=== PATIENT | female | born 1980 | race Caucasian/White ===

== ENCOUNTER 2020-12-30 18:01 | Emergency (ER) | payer MEDICAID, SELFPAY ==
--- NOTE | ~2020-12-30 | MR_ITS ---
EXAMINATION: MR LUMBAR SPINE WITHOUT CONTRAST CLINICAL INFORMATION: Low back pain. Bladder incontinence. COMPARISON: Lumbar spine MRI from 09/01/2019. TECHNIQUE: MRI of the lumbar spine was obtained using routine sequences without contrast. FINDINGS: Mild degenerative retrolisthesis of L5 on S1. Otherwise, normal anatomic alignment. Normal, homogeneous marrow signal throughout. No suspicious marrow edema. The vertebral body heights are maintained. Mild to moderate degenerative disc disease at L4-L5 and L5-S1 with partial disc desiccation and loss of height. The conus medullaris terminates at the level of L1. The distal spinal cord is normal in appearance. No significant abnormalities of the paraspinal musculature. Moderate distention of the urinary bladder. There is retroversion of the uterus. Otherwise, limited evaluation of the intra-abdominal structures without significant abnormalities. The abdominal aorta is of normal contour and caliber. AXIAL SPINAL LEVELS: L1-L2: Normal annular contour. There is no facet joint arthropathy. There is no neural foraminal stenosis. There is no spinal canal stenosis. L2-L3: Normal annular contour. There is no facet joint arthropathy. There is no neural foraminal stenosis. There is no spinal canal stenosis. L3-L4: Normal annular contour. There is no facet joint arthropathy. There is no neural foraminal stenosis. There is no spinal canal stenosis. L4-L5: Mild diffuse disc bulge. There is mild bilateral facet joint arthropathy. There is mild bilateral neural foraminal stenosis. There is stenosis of the subarticular zones with no overt spinal canal stenosis centrally. L5-S1: Moderate diffuse disc bulge with superimposed right subarticular disc extrusion with inferior migration. There is mild to moderate bilateral facet joint arthropathy. There is mild right and no left neural foraminal stenosis. There is stenosis of the right greater than left subarticular zones with mild spinal canal stenosis centrally. MR/MR lumbar spine wo con IMPRESSION: A right subarticular disc extrusion with inferior migration at L5-S1 has progressed compared to exam from 2019. There is now stenosis of the right subarticular zone and mild spinal canal stenosis centrally at L5-S1. Associated compression of the traversing right-sided S1 nerve roots. Disc bulges also cause stenoses of the remaining subarticular zones at L4-L5 and L5-S1 with a degree of mass effect on the traversing L5 and S1 nerve roots. Moderate distention of the urinary bladder.
[2020-12-30 18:03] VITALS: BP 115/77; PULSE 83; RESP 18; TEMP 36.8; O2SAT 99; BMI 27.4
--- NOTE | 2020-12-30 18:54 | ED.BACK ---
HPI - Back Pain/Injury General Chief Complaint: Back Pain/Injury Stated Complaint: LOW BACK PAIN Time Seen by Provider: 12/30/20 18:51 Source: patient Mode of arrival: ambulatory Limitations: no limitations History of Present Illness HPI Narrative: 40-year-old female with a past medical history of herniated discs. She tells me she is followed by [facility] as well as Dr. Guillaume from Neurology here. She has chronic lower back pain which radiates to the right lower extremity and sometimes the left lower extremity. She has a known weakness in the right lower extremity with intermittent paresthesias. She is here today with acute on chronic low back pain for the last 6 days. No increasing weakness or worsening paresthesias. However, she has had bladder incontinence and feels like she has decreased sensation around her anus. No bowel incontinence. No fevers or chills. Ambulatory with a cane Related Data Previous Rx's Medication Instructions Recorded prednisone 40 mg PO DAILY #10 tab 12/30/20 Allergies Allergy/AdvReac Type Severity Reaction Status Date / Time cat dander [CAT] Allergy Intermediate WATERY Verified 12/30/20 18:03 ITCHY EYES dog dander [DOG] Allergy Intermediate WATERY Verified 12/30/20 18:03 ITCHY EYES DUST Allergy Intermediate ITCHY Uncoded 05/01/20 19:48 WATER EYES CONGESTION Review of Systems Review of Systems: Yes all other systems are reviewed and are negative Constitutional: Constitutional: Reports no additional constitutional complaints, Denies body ache(s), Denies chills, Denies fever(s), Denies headache(s) and Reports weakness Eyes: Eyes: Reports no additional eye complaints and Denies change in vision ENT: Reports system reviewed and no additional complaints, except as documented, Denies dizziness, Denies headache(s), Denies nasal congestion, Denies nasal discharge and Denies neck pain Cardiovascular: Cardiovascular: Reports no additional cardiovascular complaints, Denies chest pain, Denies leg edema and Denies dyspnea Respiratory: Respiratory: Reports no additional respiratory complaints, Denies cough and Denies dyspnea Gastrointestinal: Gastrointestinal: Reports no additional gastrointestinal complaints, Denies abdominal pain, Denies diarrhea, Denies nausea and Denies vomiting Genitourinary: Genitourinary: Reports no additional female genitourinary complaints and Reports urinary incontinence Musculoskeletal: Musculoskeletal: Reports no additional musculoskeletal complaints, Reports back pain, Denies arthralgias, Denies joint swelling, Denies neck pain, Denies numbness and Denies tingling Integumentary/Breasts: Skin/Breast: Reports system reviewed and no additional complaints, except as docu and Denies rash Neurologic: Reports system reviewed and no additional complaints, except as documented, Denies Abnormal speech present, Denies dizziness, Denies headache(s), Denies numbness, Denies tingling and Reports weakness PMFSH Past Medical History Attestation statement: The following information was validated with the patient. Source: old records reviewed and nursing notes reviewed Social History Social History Advance Directives: No Advance Directives Information Provided: No Patient : No Physical Exam Vital Signs: Vital Signs: Last Vital Signs Temp 98.2 F 12/30/20 18:03 Pulse 83 12/30/20 18:03 Resp 18 12/30/20 18:03 BP 115/77 12/30/20 18:03 Pulse Ox 99 12/30/20 18:03 Body Mass Index 27.4 Const: General: cooperative, healthy appearing, comfortable and no acute distress Orientation/consciousness: patient oriented x3 Limitations: no limitations HENMT: Head: Yes normal to inspection Ears: hearing grossly normal bilaterally General nose exam: Normal external nose present Face and sinus: Yes normal facial exam Mouth: Normal oral and palatal mucosa present Throat: Yes posterior oropharynx normal Eyes: General: appearance normal, both eyes and all related structures Pupils: Equal, round and reactive pupils present Neck: Neck: Yes normal visual inspection Chest: Chest palpation & inspection: normal inspection of the chest Resp: Effort & Inspection: normal respiratory effort Auscultation: clear to auscultation bilaterally Cardio: Rate: regular rate Rhythm: regular rhythm Peripheral pulses: Peripheral pulses 2+ throughout GI: Inspection: Yes normal to inspection Palpation (GI): Soft to palpation and nontender Auscultation: normal bowel sounds Rectal Exam - Female: normal sphincter tone Back/Spine/Pelvis: Other: Midline lumbar tenderness. No step-offs or deformities Pain is worsened with a right straight leg raise Thoracic/Lumbar Spine: thoracic and lumbar spine normal to inspection Skin: General skin exam: no rashes or lesions noted Neuro: Other: bilateral UE 5/5 RLE 4/5 LLE 5/5 General: patient oriented x3 and normal sensation to monofilament Cranial nerves: Yes Equal, round and reactive pupils present, Yes Bilaterally intact EOM present, Yes Normal facial strength present and Yes Midline tongue present Cognition (Neuro): normal cognition Speech: No Abnormal speech present Sensory Exam: Normal double simultaneous stimulation for sensation Deep tendon reflexes (DTR's): Right patellar reflex intensity grade: 2+, Left patellar reflex intensity grade: 2+, Right ankle reflex intensity grade: 2+ and Left ankle reflex intensity grade: 2+ Coordination: [id number] test normal Extrem: General: Yes normal to inspection, Yes no pedal edema and Yes no calf tenderness Course Course Course Narrative: 40-year-old female with acute on chronic low back pain for 6 days now with bladder incontinence and decreased perineal sensation. Normal rectal exam. Right lower extremity weakness at baseline per patient. +paresthesias intermittent to LE unchanged from previous. Will need MRI lumbar spine to r/o caude equina. 2114-IMPRESSION: A right subarticular disc extrusion with inferior migration at L5-S1 has progressed compared to exam from 2019. There is now stenosis of the right subarticular zone and mild spinal canal stenosis centrally at L5-S1. Associated compression of the traversing right-sided S1 nerve roots. Disc bulges also cause stenoses of the remaining subarticular zones at L4-L5 and L5-S1 with a degree of mass effect on the traversing L5 and S1 nerve roots. Moderate distention of the urinary bladder. No cauda equina -Will need PVR 2130-PVR 67ml. Patient is ambulatory. Pain is well controlled. She tells me that this has happened to her previously and a course of prednisone helped the past. Will prescribe a 5 day course of prednisone. Patient will be discharged home with follow-up with her back specialists. Reviewed worrisome signs and symptoms when to return to the emergency department. Comfortable discharge home. MDM - Back Pain/Injury MDM Narrative Medical decision making narrative: caude equina Differential Diagnosis Differential diagnosis: Likely lumbar radiculopathy, sciatica and strain of lumbar region Medical Records Attestation: I reviewed the patient's medical records. Lab Data Attestation: I reviewed the patient's lab results. Imaging Data MRI lumbar spine: Attestation: I personally reviewed and interpreted this imaging study as follows: Radiologist's impression: IMPRESSION: A right subarticular disc extrusion with inferior migration at L5-S1 has progressed compared to exam from 2020. There is now stenosis of the right subarticular zone and mild spinal canal stenosis centrally at L5-S1. Associated compression of the traversing right-sided S1 nerve roots. Disc bulges also cause stenoses of the remaining subarticular zones at L4-L5 and L5-S1 with a degree of mass effect on the traversing L5 and S1 nerve roots. Moderate distention of the urinary bladder. Discharge Plan Discharge Clinical Impression: Acute herniated disc Patient Disposition: Home, Self-Care Instructions: Acute Low Back Pain (ED) Additional Instructions: Follow-up with your back specialist Return for worsening incontinence, loss of sensation in the groin Prescriptions: New prednisone 20 mg tablet 40 mg PO DAILY Qty: 10 RF: 0 Referrals: Yenny Archibald NP [Primary Care Provider] - 2 days
--- NOTE | 2020-12-30 21:22 | PC.NURSE ---
65ML IN BLADDER PER SCAN.
[2020-12-30 21:31] LABS: Glucose Urine UA NEG (NEG); Leukocyte Esterase Urine NEG (NEG); Nitrite Urine NEG (NEG); Specific Gravity - Urine 1.015 (1.005-1.025); Urine Blood NEG (NEG); Urine Ketones NEG (NEG); Urine Protein NEG (NEG-TRACE)
[2020-12-30 21:33] LABS: Appearance Urine CLEAR; Color Urine YELLOW
== END 2020-12-30 21:39 | disposition home or self-care (01) ==
PROVIDERS: Nurse Practitioner Family; Emergency Provider Emergency Medicine; PCP Nurse Practitioner Family
DX: M51.26 Other intervertebral disc displacement, lumbar region (principal); M48.07 Spinal stenosis, lumbosacral region; M54.41 Lumbago with sciatica, right side; R32 Unspecified urinary incontinence
CPT/HCPCS: 51798; 72148; 81003; 99283; 99284

== ENCOUNTER 2021-01-13 13:51 | Outpatient (REF) | payer MEDICAID, SELFPAY ==
[2021-01-13 15:33] LABS: Anion Gap 10 (12-20); Blood Urea Nitrogen 14 mg/dL (9-16); Calcium 8.8 mg/dL (8.4-10.2); Carbon Dioxide 28 mmol/L (22-29); Chloride 105 mmol/L (96-108); Estimated Glomerular Filt Rate > 60; Glucose Random 98 mg/dL (60-115); Potassium 4.3 mmol/L (3.3-5.1); Sodium 139 mmol/L (135-145)
[2021-01-13 16:06] LABS: Erythrocyte Sedimentation Rate 3 MM/HR (0-20)
[2021-01-14 07:44] LABS: HIV AB/AG Nonreactive (Nonreactive); HIV Num 1 0.08 S/CO (0.00-0.99)
[2021-01-14 08:27] LABS: Lyme Abs Screen <0.90 index
[2021-01-15 12:11] LABS: IgA 320 mg/dL (47-310); IgG 916 mg/dL (600-1640); IgM 151 mg/dL (50-300)
[2021-01-16 14:07] LABS: Anti Nuclear Antibody Screen NEGATIVE (NEGATIVE)
== END 2021-01-13 13:52 | disposition home or self-care (01) ==
LOC: HO.LAB 13:51
PROVIDERS: PCP Nurse Practitioner Family; Visit Provider Psychiatry & Neurology Neurology
DX: G62.9 Polyneuropathy, unspecified (principal)
CPT/HCPCS: 36415; 80048; 82784; 85652; 86038; 86039; 86334; 86617; 86618; 87389

== ENCOUNTER 2021-02-09 16:07 | Outpatient (REF) | payer MEDICAID, SELFPAY ==
--- NOTE | ~2021-02-09 | MR_ITS ---
MR BRAIN WITHOUT AND WITH CONTRAST CLINICAL INFORMATION: Spastic bladder. COMPARISON: None available. TECHNIQUE: Multiplanar, multisequence MRI of the brain was obtained before and after the intravenous administration of 7.5 mL Gadavist. FINDINGS: There are a few nonspecific punctate foci of T2 signal change within the right frontal white matter. No enhancing lesions intracranially. There is no hydrocephalus, extra-axial surface collection, or herniation. The major flow voids at the skull base are preserved. There is no acute infarct on diffusion-weighted imaging. There is no intracranial hemorrhage on the gradient recalled echo acquisition. The midline structures are normal. The cerebellar tonsils are normally positioned. The cerebellum and brainstem are normal. The craniocervical junction is normal. Osseous marrow signal intensity is homogenous. The visualized soft tissues are unremarkable. MR/MR head/brain wo/w con IMPRESSION: There are a few nonspecific punctate foci of T2 signal change within the right frontal white matter. No enhancing lesions intracranially.
== END 2021-02-09 16:08 | disposition home or self-care (01) ==
LOC: HO.MRI 16:07
PROVIDERS: Visit Provider Psychiatry & Neurology Neurology
DX: N32.89 Other specified disorders of bladder (principal)
CPT/HCPCS: 70553; A9585

== ENCOUNTER 2021-11-04 14:18 | Outpatient (REF) | payer MEDICAID, SELFPAY ==
--- NOTE | ~2021-11-04 | MR_ITS ---
EXAMINATION: MR LUMBAR SPINE WITHOUT CONTRAST CLINICAL INFORMATION: Bilateral lower extremity pain. COMPARISON: Lumbar spine MRI 12/30/2020. TECHNIQUE: MRI of the lumbar spine was obtained using routine sequences without contrast. FINDINGS: Alignment is normal. Vertebral body heights are preserved. No acute bone marrow signal changes. There is disc desiccation at L4-L5 and L5-S1 without substantial loss of intervertebral disc height. The tip of the conus medullaris is located at L1. No mass effect on the conus. Visualized distal cord signal intensity is normal. At L1-L2 the annular contour is normal. No canal or neuroforaminal compromise. At L2-L3 the annular contour is normal. No canal or neuroforaminal compromise At L3-L4 the annular contour is normal. No canal or neuroforaminal compromise. At L4-L5 there is a bulging disc. Bilateral facet degenerative change. No canal stenosis. Symmetric subarticular zone narrowing causes abutment of both traversing L5 nerve roots. No foraminal nerve root compression. At L5-S1 there is a broad right subarticular extrusion with 0.4 cm caudal subligamentous extension of extruded disc which are causing asymmetric compression of the right traversing S1 nerve roots. There is also abutment of the left traversing S1 nerve roots at this level. No foraminal nerve root compression. No canal stenosis. Limited visualization of the retroperitoneal anatomy reveals no abnormal finding. Psoas and paraspinal muscle groups are symmetric. MR/MR lumbar spine wo con IMPRESSION: There is disc degeneration at levels of L4-L5 and L5-S1. A right subarticular extrusion at L5-S1 causes asymmetric compression of the right traversing S1 nerve roots. There is also abutment of left traversing nerve roots at this level. Otherwise no canal or neuroforaminal compromise within the lumbar spine.
== END 2021-11-04 14:19 | disposition home or self-care (01) ==
LOC: HO.MRI 14:18
PROVIDERS: PCP Nurse Practitioner Family; Visit Provider Physical Medicine & Rehabilitation
DX: M54.16 Radiculopathy, lumbar region (principal)
CPT/HCPCS: 72148